=== PATIENT | female | born 1980 | race Caucasian/White ===

== ENCOUNTER 2017-08-23 11:16 | Emergency (ER) | payer OTHER ==
[~2017-08-23] VITALS: Ht 167.6 cm; Wt 98.0 kg
[2017-08-23 11:19] VITALS: BP 127/58; Ht 167.6 cm; Wt 98.0 kg
== END 2017-08-23 13:08 | disposition left against medical advice (07) ==
LOC: ED 11:16
DX: Z53.21 Procedure and treatment not carried out due to patient leaving prior to being seen by health care provider (principal)